=== PATIENT | female | born 1945 | race Hispanic/Latino ===

== ENCOUNTER 2016-04-27 07:05 | Emergency (ER) | payer MEDICARE, OTHER ==
[2016-04-27] MEDS ORDERED: ACETAMINOPHEN 325 MG TAB ONE (08:02)
[2016-04-27] MEDS ORDERED: LEVOFLOXACIN 500 MG TAB ONE ×2 (08:48→11:29)
== END 2016-04-27 11:43 | disposition home or self-care (01) ==
LOC: ER 07:34
DX: J20.9 Acute bronchitis, unspecified (principal); E86.0 Dehydration; Z79.899 Other long term (current) drug therapy
CPT/HCPCS: 36415; 71010; 80053; 81001; 83605; 85025; 87040; 87088; 87804

== ENCOUNTER 2016-05-01 22:31 | Inpatient (IN) | payer MEDICARE, OTHER ==
[~2016-05-01] VITALS: Ht 144.8 cm; Wt 92.7 kg
[2016-05-01] MEDS ORDERED: DUONEB INH ONE ×2 (22:47)
[2016-05-01] MEDS ORDERED: METHYLPRED SOD SUCC 125 MG/2 ML VIAL ONE (23:44)
[2016-05-01] MEDS ORDERED: SODIUM CHLORIDE 0.9% 1,000 ML ONE (23:44)
[2016-05-01] MEDS ORDERED: NEB-ALBUTEROL 2.5 MG/3 ML INH ONE (23:51)
[2016-05-02] MEDS ORDERED: SODIUM CHLORIDE 0.9% 250 ML IV ONE (00:30)
[2016-05-02] MEDS ORDERED: SODIUM CHLORIDE 0.9% 100 ML IV ONE (00:30)
[2016-05-02] MEDS ORDERED: CEFTRIAXONE 1 GM VIAL ONE (00:30)
[2016-05-02] MEDS ORDERED: ACETAMINOPHEN 325 MG TAB ONE (00:30)
[2016-05-02] MEDS ORDERED: AZITHROMYCIN 500 MG VIAL IV ONE (00:30)
[2016-05-02] MEDS ORDERED: SODIUM CHLORIDE 0.9% 1,000 ML ONE ×2 (01:03→03:29)
[2016-05-02] MEDS ORDERED: MORPHINE 2 MG/ML SYR ONE (01:41)
[2016-05-02] MEDS ORDERED: ONDANSETRON 4 MG VIAL IV PUSH PRN (03:30)
[2016-05-02] MEDS ORDERED: SODIUM CHLORIDE 0.9% 1,000 ML IV ONE ×2 (03:30)
[2016-05-02] MEDS ORDERED: SALINE FLUSH 10 ML FLUSH PRN (03:30)
[2016-05-02] MEDS ORDERED: DEXTROSE 50% SYRINGE 50 ML IV PRN (03:30)
[2016-05-02] MEDS ORDERED: GLUCAGON 1 MG VIAL IM PRN (03:30)
[2016-05-02] MEDS: DUONEB INH SCH ×6 (03:30→22:41)
[2016-05-02] MEDS ORDERED: ACETAMINOPHEN 325 MG TAB PO PRN (03:30)
[2016-05-02] MEDS ORDERED: PHARMACY TO DOSE LEVAQUIN IV SCH (03:40)
[2016-05-02] MEDS: AZITHROMYCIN 500 MG in SODIUM CHLORIDE 0.9% 250 ML IV SCH (05:09)
[2016-05-02 05:18] VITALS: RESP 20
[2016-05-02] MEDS ORDERED: LEVOFLOXACIN 750 MG/150 ML 150 ML IV SCH (05:24)
[2016-05-02] MEDS: SODIUM CHLORIDE 0.9% FLUSH BAG 500 ML IV SCH (06:02)
[2016-05-02] MEDS: SALINE FLUSH 10 ML FLUSH SCH ×2 (08:00→20:00)
[2016-05-02] MEDS: SODIUM CHLORIDE 0.9% 1,000 ML IV SCH (08:42)
[2016-05-02 09:31] VITALS: BMI 43.5
[2016-05-02 09:34] VITALS: BP_SYST 110; RESP 18
[2016-05-02] MEDS ORDERED: ENOXAPARIN 30 MG/0.3 ML SYR SUBQ ONE (10:40)
[2016-05-02 12:43] VITALS: BP_SYST 142; RESP 18
[2016-05-02 16:49] VITALS: BP_SYST 138; TEMP 97.8
[2016-05-02] MEDS: METHYLPRED SOD SUCC 125 MG/2 ML VIAL IV SCH (17:08)
[2016-05-02 19:20] VITALS: BP_SYST 134; RESP 18; TEMP 97.8
[2016-05-02] MEDS: AMITRIPTYLINE 50 MG TAB PO SCH (19:59)
[2016-05-02] MEDS: EZETIMIBE 10 MG TAB PO SCH (19:59)
[2016-05-02] MEDS: DOCUSATE SOD 100 MG CAP PO SCH (19:59)
[2016-05-02 23:16] VITALS: BP_SYST 113; RESP 19; TEMP 97.8
[2016-05-03] MEDS: SODIUM CHLORIDE 0.9% 1,000 ML IV SCH (00:46)
[2016-05-03] MEDS: METHYLPRED SOD SUCC 125 MG/2 ML VIAL IV SCH ×2 (00:46→09:02)
[2016-05-03] MEDS: DUONEB INH SCH ×6 (02:50→22:47)
[2016-05-03 03:00] VITALS: BP_SYST 131; RESP 19; TEMP 97.7
[2016-05-03] MEDS: SODIUM CHLORIDE 0.9% FLUSH BAG 500 ML IV SCH (05:28)
[2016-05-03 07:57] VITALS: BP_SYST 130; RESP 18; TEMP 97.7
[2016-05-03] MEDS: SALINE FLUSH 10 ML FLUSH SCH ×2 (08:00→20:01)
[2016-05-03] MEDS: FENOFIBRATE 48 MG TAB PO SCH (09:02)
[2016-05-03] MEDS: AZITHROMYCIN 500 MG in SODIUM CHLORIDE 0.9% 250 ML IV SCH (09:02)
[2016-05-03] MEDS: ENOXAPARIN 30 MG/0.3 ML SYR SUBQ SCH (09:03)
[2016-05-03] MEDS ORDERED: LEVOFLOXACIN 750 MG/150 ML 150 ML IV SCH (09:40)
[2016-05-03 11:28] VITALS: BP_SYST 132; RESP 18; TEMP 97.9
[2016-05-03] MEDS: NEB-BUDESONIDE 0.5 MG INH SCH ×2 (11:55→19:07)
[2016-05-03] MEDS: NEB-BROVANA 15 MCG/2 ML INH SCH ×2 (11:55→19:07)
[2016-05-03] MEDS: CEFTRIAXONE 2 GM in SODIUM CHLORIDE 0.9% 50 ML IV SCH (13:18)
[2016-05-03] MEDS: OMEGA 3 FATTY ACIDS 1 GM CAP PO SCH ×3 (13:18→20:01)
[2016-05-03] MEDS: SITAGLIPTIN 50 MG TAB PO SCH (13:18)
[2016-05-03] MEDS: FLUTICASONE 0.05% NA BTL NARE EACH SCH (13:18)
[2016-05-03 15:34] VITALS: BP_SYST 131; RESP 18; TEMP 97.9
[2016-05-03] MEDS ORDERED: GLUCOSAMINE PO SCH (16:00)
[2016-05-03] MEDS ORDERED: MSM PO SCH (16:00)
[2016-05-03] MEDS ORDERED: CHONDROITIN A PO SCH (16:00)
[2016-05-03] MEDS: GABAPENTIN 600 MG TAB PO SCH ×2 (16:30→20:01)
[2016-05-03] MEDS: METHYLPRED SOD SUCC 40 MG VIAL IV SCH (16:30)
[2016-05-03 19:25] VITALS: BP_SYST 131; RESP 26; TEMP 98.1
[2016-05-03] MEDS: AMITRIPTYLINE 50 MG TAB PO SCH (20:01)
[2016-05-03] MEDS: CALCIUM CARB/VIT D3 600 MG TAB PO SCH (20:01)
[2016-05-03] MEDS: FAMOTIDINE 20 MG TAB PO SCH (20:01)
[2016-05-03] MEDS: PRAVASTATIN 40 MG TAB PO SCH (20:02)
[2016-05-03] MEDS: EZETIMIBE 10 MG TAB PO SCH (20:02)
[2016-05-03] MEDS: DOCUSATE SOD 100 MG CAP PO SCH (20:04)
[2016-05-03 23:55] VITALS: BP_SYST 150; RESP 26; TEMP 98.3
[2016-05-04] MEDS: METHYLPRED SOD SUCC 40 MG VIAL IV SCH ×2 (00:14→08:49)
[2016-05-04] MEDS: DUONEB INH SCH ×6 (02:13→22:41)
[2016-05-04 03:20] VITALS: BP_SYST 147; RESP 18; TEMP 98.5
[2016-05-04] MEDS: NEB-BUDESONIDE 0.5 MG INH SCH ×2 (06:13→18:16)
[2016-05-04] MEDS: NEB-BROVANA 15 MCG/2 ML INH SCH ×2 (06:14→18:16)
[2016-05-04] MEDS: SODIUM CHLORIDE 0.9% FLUSH BAG 500 ML IV SCH (06:29)
[2016-05-04 07:36] VITALS: BP_SYST 143; RESP 18; TEMP 98.7
[2016-05-04] MEDS: ENOXAPARIN 30 MG/0.3 ML SYR SUBQ SCH (08:48)
[2016-05-04] MEDS: SALINE FLUSH 10 ML FLUSH SCH ×2 (08:48→20:29)
[2016-05-04] MEDS: CEFTRIAXONE 2 GM in SODIUM CHLORIDE 0.9% 50 ML IV SCH (08:49)
[2016-05-04] MEDS: FLUTICASONE 0.05% NA BTL NARE EACH SCH (08:49)
[2016-05-04] MEDS: OMEGA 3 FATTY ACIDS 1 GM CAP PO SCH ×4 (08:50→20:30)
[2016-05-04] MEDS: CALCIUM CARB/VIT D3 600 MG TAB PO SCH ×2 (08:50→20:30)
[2016-05-04] MEDS: GABAPENTIN 600 MG TAB PO SCH ×3 (08:51→20:29)
[2016-05-04] MEDS: FENOFIBRATE 48 MG TAB PO SCH (08:51)
[2016-05-04] MEDS: LISINOPRIL/HCTZ 10/12.5 TAB PO SCH (08:51)
[2016-05-04] MEDS: FAMOTIDINE 20 MG TAB PO SCH ×2 (08:51→20:30)
[2016-05-04] MEDS: SITAGLIPTIN 50 MG TAB PO SCH (08:51)
[2016-05-04] MEDS: AZITHROMYCIN 500 MG in SODIUM CHLORIDE 0.9% 250 ML IV SCH (09:56)
[2016-05-04] MEDS: BISOPROLOL 5 MG TAB PO SCH (12:01)
[2016-05-04 12:20] VITALS: BP_SYST 153; RESP 18; TEMP 98.7
[2016-05-04 15:33] VITALS: BP_SYST 118; RESP 18; TEMP 97.6
[2016-05-04 19:30] VITALS: BP_SYST 128; RESP 18; TEMP 99.5
[2016-05-04] MEDS: EZETIMIBE 10 MG TAB PO SCH (20:30)
[2016-05-04] MEDS: PRAVASTATIN 40 MG TAB PO SCH (20:30)
[2016-05-04] MEDS: AMITRIPTYLINE 50 MG TAB PO SCH (20:30)
[2016-05-04] MEDS: DOCUSATE SOD 100 MG CAP PO SCH (21:00)
[2016-05-04 23:00] VITALS: BP_SYST 128; RESP 20; TEMP 99.3
[2016-05-05] MEDS: DUONEB INH SCH ×6 (02:32→22:43)
[2016-05-05 03:06] VITALS: BP_SYST 105; RESP 18; TEMP 97.9
[2016-05-05 06:00] VITALS: BP_SYST 113; RESP 20; TEMP 97.8
[2016-05-05 06:09] VITALS: Ht 144.8 cm; Wt 92.7 kg
[2016-05-05] MEDS: SODIUM CHLORIDE 0.9% FLUSH BAG 500 ML IV SCH (06:09)
[2016-05-05] MEDS: NEB-BUDESONIDE 0.5 MG INH SCH ×2 (08:03→19:16)
[2016-05-05] MEDS: NEB-BROVANA 15 MCG/2 ML INH SCH ×2 (08:03→19:16)
[2016-05-05] MEDS: BISOPROLOL 5 MG TAB PO SCH (09:22)
[2016-05-05] MEDS: OMEGA 3 FATTY ACIDS 1 GM CAP PO SCH ×4 (09:22→20:00)
[2016-05-05] MEDS: GABAPENTIN 600 MG TAB PO SCH ×3 (09:22→20:01)
[2016-05-05] MEDS: FLUTICASONE 0.05% NA BTL NARE EACH SCH (09:22)
[2016-05-05] MEDS: FENOFIBRATE 48 MG TAB PO SCH (09:22)
[2016-05-05] MEDS: FAMOTIDINE 20 MG TAB PO SCH ×2 (09:22→20:01)
[2016-05-05] MEDS: SITAGLIPTIN 50 MG TAB PO SCH (09:22)
[2016-05-05] MEDS: LISINOPRIL/HCTZ 10/12.5 TAB PO SCH (09:22)
[2016-05-05] MEDS: CALCIUM CARB/VIT D3 600 MG TAB PO SCH ×2 (09:22→20:00)
[2016-05-05] MEDS: PREDNISONE 50 MG TAB PO SCH (09:22)
[2016-05-05] MEDS: ENOXAPARIN 30 MG/0.3 ML SYR SUBQ SCH (09:23)
[2016-05-05] MEDS: CEFTRIAXONE 2 GM in SODIUM CHLORIDE 0.9% 50 ML IV SCH (09:55)
[2016-05-05] MEDS: SALINE FLUSH 10 ML FLUSH SCH ×2 (09:55→20:00)
[2016-05-05 11:12] VITALS: BP_SYST 130; TEMP 98.1
[2016-05-05 15:11] VITALS: BP_SYST 104; RESP 20; TEMP 97.6
[2016-05-05 19:08] VITALS: BP_SYST 99; RESP 18; TEMP 98.2
[2016-05-05] MEDS: EZETIMIBE 10 MG TAB PO SCH (20:00)
[2016-05-05] MEDS: DOCUSATE SOD 100 MG CAP PO SCH (20:00)
[2016-05-05] MEDS: PRAVASTATIN 40 MG TAB PO SCH (20:01)
[2016-05-05] MEDS: AMITRIPTYLINE 50 MG TAB PO SCH (20:01)
[2016-05-05 23:00] VITALS: BP_SYST 94; RESP 20; TEMP 97.8
[2016-05-06] MEDS: DUONEB INH SCH ×3 (02:31→10:18)
[2016-05-06] MEDS: SODIUM CHLORIDE 0.9% FLUSH BAG 500 ML IV SCH (05:28)
[2016-05-06] MEDS: NEB-BUDESONIDE 0.5 MG INH SCH (06:34)
[2016-05-06] MEDS: NEB-BROVANA 15 MCG/2 ML INH SCH (06:34)
[2016-05-06 07:50] VITALS: BP_SYST 97; RESP 16; TEMP 98.1
[2016-05-06] MEDS ORDERED: MISSING DOSE XX ONE (08:20)
[2016-05-06] MEDS: CEFTRIAXONE 2 GM in SODIUM CHLORIDE 0.9% 50 ML IV SCH (08:42)
[2016-05-06] MEDS: FLUTICASONE 0.05% NA BTL NARE EACH SCH (08:42)
[2016-05-06] MEDS: SITAGLIPTIN 50 MG TAB PO SCH (08:43)
[2016-05-06] MEDS: FAMOTIDINE 20 MG TAB PO SCH (08:43)
[2016-05-06] MEDS: BISOPROLOL 5 MG TAB PO SCH (08:43)
[2016-05-06] MEDS: GABAPENTIN 600 MG TAB PO SCH (08:44)
[2016-05-06] MEDS: FENOFIBRATE 48 MG TAB PO SCH (08:44)
[2016-05-06] MEDS: OMEGA 3 FATTY ACIDS 1 GM CAP PO SCH ×2 (08:44→12:06)
[2016-05-06] MEDS: CALCIUM CARB/VIT D3 600 MG TAB PO SCH (08:44)
[2016-05-06] MEDS: PREDNISONE 50 MG TAB PO SCH (08:44)
[2016-05-06] MEDS: LISINOPRIL/HCTZ 10/12.5 TAB PO SCH (08:44)
[2016-05-06] MEDS: SALINE FLUSH 10 ML FLUSH SCH (08:49)
[2016-05-06] MEDS: ENOXAPARIN 30 MG/0.3 ML SYR SUBQ SCH (08:54)
[2016-05-06 11:07] VITALS: BP_SYST 134; RESP 16; TEMP 97.9
[2016-05-06 11:08] VITALS: TEMP 97.9
[2016-05-06 11:09] VITALS: RESP 16
[2016-05-06 14:56] VITALS: BP_SYST 98; RESP 16; TEMP 98.2
[2016-05-06] MEDS ORDERED: DUONEB INH SCH (15:00)
[2016-05-06 16:02] VITALS: BP_SYST 98; RESP 16; TEMP 98.2
== END 2016-05-06 16:24 | disposition home or self-care (01) | DRG 871 ==
LOC: ENRESERVTM → ENRESERVDT → ER 22:31 → ENPENDDIS 05-02 03:27 → EMR 05-02 03:27 → PCU 05-02 05:02 → 4NT 05-05 05:56
PROVIDERS: ADMIT Internal Medicine; ATTEND Internal Medicine
DX: A41.9 Sepsis, unspecified organism (principal); J96.01 Acute respiratory failure with hypoxia; N17.9 Acute kidney failure, unspecified; J18.9 Pneumonia, unspecified organism; G92 Toxic encephalopathy; E11.22 Type 2 diabetes mellitus with diabetic chronic kidney disease; N18.3 Chronic kidney disease, stage 3 (moderate); E11.40 Type 2 diabetes mellitus with diabetic neuropathy, unspecified; J44.0 Chronic obstructive pulmonary disease with (acute) lower respiratory infection; J44.1 Chronic obstructive pulmonary disease with (acute) exacerbation; Z68.41 Body mass index [BMI] 40.0-44.9, adult; E66.01 Morbid (severe) obesity due to excess calories; I12.9 Hypertensive chronic kidney disease with stage 1 through stage 4 chronic kidney disease, or unspecified chronic kidney disease; G47.33 Obstructive sleep apnea (adult) (pediatric); T38.0X5A Adverse effect of glucocorticoids and synthetic analogues, initial encounter; Y92.239 Unspecified place in hospital as the place of occurrence of the external cause; D72.829 Elevated white blood cell count, unspecified; E78.5 Hyperlipidemia, unspecified; R65.20 Severe sepsis without septic shock; Z79.84 Long term (current) use of oral hypoglycemic drugs; Z79.51 Long term (current) use of inhaled steroids; I25.10 Atherosclerotic heart disease of native coronary artery without angina pectoris; K21.9 Gastro-esophageal reflux disease without esophagitis
CPT/HCPCS: 36415; 71010; 71020; 71250; 78582; 80048; 80053; 82553; 82947; 83036; 83605; 83880; 84145; 84484; 85025; 85379; 87040; 87071; 87088; 87278; 87299; 87493; 87804; 87880; 93005; 94640; 94799; 96360; 96361; 96365; 96366; 96367; 96375; 99222; 99233